=== PATIENT | female | born 1995 | race Two or more races ===

== ENCOUNTER 2021-03-30 21:55 | Emergency (ER) | payer MEDICAID ==
[~2021-03-30] VITALS: Ht 160 cm; Wt 76.7 kg
[2021-03-30 22:30] LABS: Basophils # (auto) 0 10 ^3/uL (0-0.2); Basophils % (auto) 0.3 % (0.0-2.0); Eosinophils # (auto) 0.1 10 ^3/uL (0-0.8); Eosinophils % (auto) 0.9 % (0.0-7.0); Hematocrit 47.1 % (36.0-46.0); Hemoglobin 15.8 g/dL (12.2-16.2); Lymphocytes # (auto) 2.8 10 ^3/uL (0.4-5.4); Lymphocytes % (auto) 27.9 % (10.0-50.0); Mean Corpuscular Hemoglobin 29.4 pg (28.0-32.0); Mean Corpuscular Hgb Conc. 33.5 g/dL (32.0-36.0); Mean Corpuscular Volume 87.6 fL (80.0-100.0); Monocytes # (auto) 0.8 10 ^3/uL (0-1.3); Monocytes % (auto) 8.2 % (0.0-12.0); Neutrophils # (auto) 6.3 10 ^3/uL (1.6-8.6); Neutrophils % (auto) 62.7 % (37.0-80.0); Nucleated Red Blood Cells % 0.1 %; Red Blood Cells 5.38 10^6/uL (4.0-5.20); Red Cell Distribution Width 13.4 % (11.8-14.3)
[2021-03-30 22:50] LABS: Albumin 3.7 g/dL (3.4-5.0); BUN/Creatinine Ratio 12.5; Calcium 8.9 mg/dL (8.5-10.1); Potassium 3.8 mmol/L (3.5-5.1)
[2021-03-30 22:53] LABS: Bilirubin, Total 0.4 mg/dL (0.2-1.0)
[2021-03-30 23:49] LABS: Urine Bacteria FEW /hpf (None Seen); Urine Blood 1+ /uL (Negative); Urine Mucus FEW (None Seen); Urine Specific Gravity 1.029 (1.001-1.035); Urine WBC 11 /hpf (0 - 5)
[2021-03-31] MEDS ORDERED: IODIXANOL 320MG/ML 100ML BTL IV ONE (01:01)
[2021-03-31] MEDS ORDERED: MORPHINE SULFATE 4 MG/ML SYR/VIAL IV ONE (02:15)
[2021-03-31] MEDS ORDERED: METOCLOPRAMIDE HCL 5MG/ml INJ 2ml VIAL IV ONE (02:15)
[2021-03-31 03:50] VITALS: BP 115/62
== END 2021-03-31 04:00 | disposition home or self-care (01) ==
LOC: ER 21:57
DX: N39.0 Urinary tract infection, site not specified (principal); Z88.8 Allergy status to other drugs, medicaments and biological substances
CPT/HCPCS: 36415; 74177; 76705; 80053; 81001; 83690; 84702; 85025; 96374; 96375; 99285; J2270; J2765; Q9967